=== PATIENT | female | born 1970 | race Caucasian/White ===

== ENCOUNTER 2018-12-23 15:51 | Emergency (ER) | payer MEDICAID, OTHER ==
[2018-12-23 17:14] VITALS: BP 125/81
--- NOTE | 2018-12-23 18:17 | UC ---
Throat Pain/Nasal Cassius HPI - HPI Summary HPI Summary: 48-year-old female presents with 4 day history of loss of voice. Associated with nasal congestion and postnasal drip. Has history of seasonal allergies. Denies fever, chills, nasal drainage, ear pain, sore throat, or cough. - History of Current Complaint Chief Complaint: UCRespiratory Stated Complaint: LOSS OF VOICE,CONGESTION Time Seen by Provider: 12/23/18 17:37 Hx Obtained From: Patient Pain Intensity: 0 - Allergies/Home Medications Allergies/Adverse Reactions: Allergies Allergy/AdvReac Type Severity Reaction Status Date / Time hydrocortisone Allergy Swelling Verified 12/23/18 17:07 [From Solu-Cortef] Of Face,Lips,& Throat metronidazole [From Flagyl] Allergy Rash And Verified 12/23/18 17:07 Itching Home Medications: Home Medications NK [No Home Medications Reported] 12/23/18 [History Confirmed 12/23/18] PMH/Surg Hx/FS Hx/Imm Hx Previously Healthy: Yes - Denies significant PMH - Surgical History Surgical History: Yes Surgery Procedure, Year, and Place: . VARICOSE [facility]INS - Family History Known Family History: Positive: Non-Contributory - Social History Occupation: Unemployed Lives: Alone Alcohol Use: Occasionally Substance Use Type: None Smoking Status (MU): Never Smoked Tobacco Review of Systems All Other Systems Reviewed And Are Negative: Yes Constitutional: Negative: Fever, Chills Skin: Negative: Rash Eyes: Negative: Drainage, Eye Redness ENT: Positive: Nasal Discharge, Sinus Congestion. Negative: Sore Throat, Ear Ache, Sinus Pain/Tenderness Respiratory: Negative: Shortness Of Breath, Cough Cardiovascular: Negative: Palpitations, Chest Pain Gastrointestinal: Positive: Negative Genitourinary: Positive: Negative Musculoskeletal: Positive: Negative Neurological: Positive: Negative Is Patient Immunocompromised?: No Physical Exam - Summary Physical Exam Summary: GENERAL APPEARANCE: Well developed, well nourished, alert and cooperative, and appears to be in no acute distress. EYES: Conjunctiva clear. No drainage. EARS: External auditory canals and tympanic membranes clear, hearing grossly intact. NOSE: Mild-moderate nasal congestion. No nasal discharge. THROAT: Hoarse voice. Pharynx normal. No tonsilar inflammation, swelling, exudate, or lesions. Uvula midline. NECK: Neck supple, non-tender without lymphadenopathy. CARDIAC: Normal S1 and S2. No S3, S4 or murmurs. Rhythm is regular. There is no peripheral edema, cyanosis or pallor. Extremities are warm and well perfused. Capillary refill is less than 2 seconds. Peripheral pulses intact. LUNGS: Clear to auscultation without rales, rhonchi, wheezing or diminished breath sounds. ABDOMEN: Positive bowel sounds. Soft, nondistended, nontender. No guarding or rebound. No masses or hepatosplenomegally. MUSKULOSKELETAL: ROM intact to all extremities. No joint erythema or tenderness. Normal muscular development. Normal gait. SKIN: Skin normal color, texture and turgor with no lesions or eruptions. Triage Information Reviewed: Yes Vital Signs: Initial Vital Signs Temp 98.5 F 12/23/18 17:03 Pulse 82 12/23/18 17:03 Resp 16 12/23/18 17:03 BP 125/81 12/23/18 17:03 Pulse Ox 100 12/23/18 17:03 Vital Signs Reviewed: Yes Throat Pain/Nasal Course/Dx - Course Course Of Treatment: 48-year-old female presents with 4 day history of loss of voice. Associated with nasal congestion and postnasal drip. Has history of seasonal allergies. Denies fever, chills, nasal drainage, ear pain, sore throat, or cough. Afebrile. Vital signs stable. Patient was noted to have a hoarse voice with some mild to moderate nasal congestion and otherwise unremarkable exam. Discussed with patient that laryngitis is typically either viral or allergy related and is self limiting. Recommending that she started on an over-the- counter nondrowsy antihistamine to help with the nasal congestion and postnasal drip. She is to follow-up with ENT in 5-7 days if symptoms are not improving. Anticipatory guidance and warning symptoms reviewed with the patient. Verbalizes understanding and agrees with plan of care. - Differential Dx/Diagnosis Differential Diagnosis/HQI/PQRI: Laryngitis, Tonsillitis, URI Provider Diagnosis: Acute laryngitis Discharge - Sign-Out/Discharge Documenting (check all that apply): Patient Departure All imaging exams completed and their final reports reviewed: No Studies - Discharge Plan Condition: Stable Disposition: HOME Patient Education Materials: Laryngitis (ED) Referrals: Alton Rivera MD [Primary Care Provider] - Josef Hernández MD [Medical Doctor] - 5 Days (If symptoms do not improve. Call for appointment.) Additional Instructions: Your history and exam are consistent with an acute laryngitis. The cause is typically either a viral infection or is allergy related. The most important thing you can do for laryngitis is to rest the voice until better. Try using an over the counter non-drowsy antihistamine such as Zyrtec, Claritin , or Sally to help with the congestion. Follow up with the ear, nose and throat specialist in 5-7 days if symptoms are not improving. Call for an appointment. Seek immediate medical attention in the emergency room if you are unable to swallow, develop drooling, have difficulty breathing, develop chest pain, or any worsening of symptoms. - Billing Disposition and Condition Condition: STABLE Disposition: Home
== END 2018-12-23 18:24 | disposition home or self-care (01) ==
LOC: UCCORT 15:51
DX: J04.0 Acute laryngitis (principal)
CPT/HCPCS: 99211; G0463